=== PATIENT | female | born 1960 | race Caucasian/White ===

== ENCOUNTER 2022-12-30 11:54 | Emergency (ER) | payer OTHER ==
[~2022-12-30] VITALS: Ht 170.2 cm; Wt 73.9 kg
[2022-12-30 12:01] VITALS: BP 129/73
[2022-12-30] MEDS ORDERED: GABA100 PO (12:04)
[2022-12-30] MEDS ORDERED: ATOR20 PO (12:04)
[2022-12-30] MEDS ORDERED: Roxicodone5 MG PO (13:27)
== END 2022-12-30 13:54 | disposition home or self-care (01) ==
LOC: ER 11:54
DX: S52.571A Other intraarticular fracture of lower end of right radius, initial encounter for closed fracture (principal); W18.09XA Striking against other object with subsequent fall, initial encounter; Z23 Encounter for immunization; Z88.2 Allergy status to sulfonamides; Z79.899 Other long term (current) drug therapy
CPT/HCPCS: 29125; 73110; 90471; 90714; 90715; 99283-25; A9270